=== PATIENT | male | born 1990 | race Two or more races ===

== ENCOUNTER 2016-12-20 01:42 | Emergency (ER) | payer BC, OTHER ==
[2016-12-20 01:48] VITALS: BP 138/68
[2016-12-20] MEDS ORDERED: Ondansetron INJ* 2 MG/ML VIAL IV ONE (02:09)
[2016-12-20] MEDS ORDERED: NS 0.9% 1000 ML* 1,000 ML IV ONE (02:09)
--- NOTE | 2016-12-20 02:26 | ED ---
Francis Galvez Michael, scribed for Angel Hays MD on 12/20/16 at 0219 . GI/ HPI - HPI Summary HPI Summary: 26 y/o male comes to the ED presenting with n/v/d that started today at 1800. The pt reports to having 4 episodes of vomiting and 4 episodes of diarrhea today. He also c/o back pain do to vomiting, decreased appetite, and dehydration. The pt is afebrile. - History of Current Complaint Chief Complaint: EDAbdPain Time Seen by Provider: 12/20/16 02:09 Stated Complaint: N,V & D Hx Obtained From: Patient, Medical Records Onset/Duration: Started Hours Ago, Still Present Timing: Intermittent Severity: Moderate Current Severity: Moderate Pain Intensity: 8 Pain Radiates to: Back Associated Signs and Symptoms: Positive: Back Pain, Nausea, Vomiting, Diarrhea. Negative: Fever - Allergy/Home Medications Allergies/Adverse Reactions: Allergies Allergy/AdvReac Type Severity Reaction Status Date / Time No Known Allergies Allergy Verified 12/20/16 01:48 PMH/Surg Hx/FS Hx/Imm Hx Previously Healthy: No - denies significant PMHx Infectious Disease History: No Infectious Disease History: Denies: Traveled Outside the [place] in Last 30 Days - Family History Known Family History: Negative: Blood Disorder - Social History Occupation: Student Lives: With Family Review of Systems Negative: Fever Positive: Vomiting, Diarrhea, Nausea Positive: Other - back pain All Other Systems Reviewed And Are Negative: Yes Physical Exam Triage Information Reviewed: Yes Vital Signs On Initial Exam: Initial Vitals Temp Pulse Resp BP Pulse Ox 98.7 F 78 18 138/68 100 12/20/16 01:45 12/20/16 01:45 12/20/16 01:45 12/20/16 01:45 12/20/16 01:45 Vital Signs Reviewed: Yes Appearance: Positive: Well-Appearing, No Pain Distress Skin: Positive: Warm Head/Face: Positive: Normal Head/Face Inspection Eyes: Positive: LUCIO ENT: Positive: Hearing grossly normal Neck: Positive: Supple Respiratory/Lung Sounds: Positive: Clear to Auscultation, Breath Sounds Present Cardiovascular: Positive: RRR Abdomen Description: Positive: No Organomegaly, Soft, Other: - mild diffuse abd tenderness. Negative: Guarding Bowel Sounds: Positive: Present Musculoskeletal: Positive: Strength/ROM Intact Neurological: Positive: Sensory/Motor Intact, Alert, Oriented to Person Place, Time Diagnostics - Vital Signs Vital Signs Temp Pulse Resp BP Pulse Ox 12/20/16 01:45 98.7 F 78 18 138/68 100 - Laboratory Result Diagrams: 12/20/16 03:00 12/20/16 03:00 Lab Statement: Any lab studies that have been ordered have been reviewed, and results considered in the medical decision making process. Re-Evaluation - Re-Evaluation 1st Re-Evaluation Time: 03:44 Change: Improved GIGU Course/Dx - Diagnoses Provider Diagnoses: Gastroenteritis Discharge - Discharge Plan Condition: Improved Disposition: HOME Patient Education Materials: Gastroenteritis (ED) Referrals: Non Staff,Doctor [Primary Care Provider] - [facility] [place] PHYSICIAN REFERRAL [Outside] Additional Instructions: Please follow up with [facility] [place] Physician Referral if your symptoms persist for the next 2-3 days. The documentation as recorded by the Francis zuñiga Michael accurately reflects the service I personally performed and the decisions made by me, Angel Hays MD.
[2016-12-20 03:18] LABS: Hematocrit 45 % (42-52); Hemoglobin 14.7 g/dl (14.0-18.0); Mean Corpuscular HGB Conc 33 g/dl (31-36); Mean Corpuscular Hemoglobin 28 pg (27-31); Mean Corpuscular Volume 84 fL (80-94); Mean Platelet Volume 9 um3 (7.4-10.4); Red Blood Count 5.28 10^6/ul (4.0-5.4); Red Cell Distribution Width 13 % (10.5-15)
[2016-12-20 03:22] LABS: Add Diff/Slide Review? Slide Review Added; Comments Flag Yes
[2016-12-20 03:28] LABS: Albumin 4.5 g/dL (3.2-5.2); BUN/Creatinine Ratio 27.9 (8-20); C Reactive Protein 1.8 mg/L (< 5.00); Calcium 9.3 mg/dL (8.6-10.3); EGFR African American 110.2 (>60); EGFR Non-African American 85.7 (>60); Globulin 2.5 g/dL (2-4); Potassium 3.9 mmol/L (3.5-5.0); Total Bilirubin 1.3 mg/dL (0.2-1.0)
== END 2016-12-20 04:14 | disposition home or self-care (01) ==
LOC: ED 01:42
DX: K52.9 Noninfective gastroenteritis and colitis, unspecified (principal); R11.2 Nausea with vomiting, unspecified; R19.7 Diarrhea, unspecified; M54.9 Dorsalgia, unspecified
CPT/HCPCS: 36415; 80053; 83605; 83690; 85025; 86140; 96374; 99282; J2405